=== PATIENT | female | born 1955 | race Caucasian/White ===

== ENCOUNTER 2023-02-18 13:27 | Outpatient (CLI) | payer BC | END 2023-02-18 13:28 | disposition home or self-care (01) | LOC: CSHMAMMO 13:27 | PROVIDERS: ATTEND Obstetrics & Gynecology | DX: N64.4 Mastodynia (principal) | CPT/HCPCS: 77066; G0279 ==

== ENCOUNTER 2023-05-06 09:43 | Outpatient (CLI) | payer BC | END 2023-05-06 09:44 | disposition home or self-care (01) | LOC: CSHMRI 09:43 | PROVIDERS: ATTEND Surgery | DX: G93.5 Compression of brain (principal); M47.812 Spondylosis without myelopathy or radiculopathy, cervical region | CPT/HCPCS: 72156 ==

== ENCOUNTER 2024-06-24 07:56 | Outpatient (CLI) | payer MEDICARE | END 2024-06-24 07:57 | disposition home or self-care (01) | LOC: CSHMAMMO 07:56 | PROVIDERS: ATTEND Family Medicine | DX: Z12.31 Encounter for screening mammogram for malignant neoplasm of breast (principal) | CPT/HCPCS: 77063; 77067 ==